=== PATIENT | female | born 1930 | race Caucasian/White ===

== ENCOUNTER → 2018-12-16 10:47 | Outpatient (CLI) | payer MEDICARE, BC | END | disposition home or self-care (01) | LOC: D.US 10:47 | PROVIDERS: ATTEND Family Medicine | DX: R22.41 Localized swelling, mass and lump, right lower limb (principal) ==

== ENCOUNTER 2020-12-07 20:03 | Inpatient (IN) | payer MEDICARE, BC ==
[~2020-12-07] VITALS: Ht 160 cm; Wt 63.5 kg
[2020-12-07 21:35] LABS: BASOPHILS 0.3 % (0-2); EOSINOPHILS 2.9 % (0-7); HEMATOCRIT 29.7 % (36.0-48.0); HEMOGLOBIN 9.3 g/dL (12-16); IMMATURE GRANULOCYTES 0.4 % (0-5); LYMPHOCYTE ABS# 1.86 10x3/uL (1.18-3.74); LYMPHOCYTES 16.3 % (15-50); MCH 26.7 pg (26.0-34.0); MCHC 31.3 g/dL (31.0-37.0); MCV 85.3 fL (80.0-100.0); MEAN PLATELET VOLUME 9.3 fL (7.4-10.4); MONOCYTES 5.2 % (2-11); NEUTROPHIL ABS# 8.56 10x3/uL (1.56-6.13); NEUTROPHILS 74.9 % (40-80); PLATELET COUNT 174 10x3/uL (130-400); RBC 3.48 10x6/uL (4.00-5.40); RDW 13.9 % (11.5-14.5); WBC 11.4 10x3/uL (4.8-10.8)
[2020-12-07 21:41] LABS: APTT 30.4 SECONDS (22.8-39.4); INR 1.25 (0.85-1.17); PROTIME 14.5 SECONDS (11.6-15.0)
[2020-12-07 21:42] LABS: CALC OSMOLALITY 294 mosm/kg (275-300); CALCIUM 10.3 mg/dL (8.5-10.1); CARBON DIOXIDE 26.9 mmol/L (21.0-32.0); CHLORIDE - SERUM 102 mmol/L (98-107); CREATININE - SERUM 3.7 mg/dL (0.6-1.3); GLUCOSE 109 mg/dL (74-106); POTASSIUM - SERUM 4.3 mmol/L (3.5-5.1); SODIUM 136 mmol/L (136-145); UREA NITROGEN 73 mg/dL (7-18); eGFR NON AFRICAN AMERICAN 12 mL/min (90-120)
[2020-12-07 21:56] LABS: ALBUMIN 2.5 g/dL (3.4-5.0); ALKALINE PHOSPHATASE 90 U/L (30-120); ALT (SGPT) 28 U/L (10-68); BILIRUBIN - TOTAL 0.41 mg/dL (0.2-1.3); LIPASE 282 U/L (73-393); MAGNESIUM - SERUM 2.6 mg/dL (1.8-2.4); PRO BNP 1569 pg/mL (0-450); PROTEIN - SERUM 6.4 g/dL (6.4-8.2); THYROID STIMULATING HORMONE 0.06 uIU/mL (0.36-3.74); TROPONIN-I < 0.017 ng/mL (0.000-0.060)
[2020-12-07] MEDS ORDERED: SYNTHROID150 MCG PO (22:33)
[2020-12-07] MEDS ORDERED: EFFEXOR XR37.5 MG PO (22:43)
[2020-12-07] MEDS ORDERED: DULCOLAX10 MG/SUPP RC (22:44)
[2020-12-07] MEDS ORDERED: MEGACE 20 MG TA20 MG (22:45)
[2020-12-07] MEDS ORDERED: NORVASC10 MG PO (22:45)
[2020-12-07] MEDS ORDERED: MAG-OX 400 MG400 MG (22:46)
[2020-12-07] MEDS ORDERED: ZINC10 MG (22:46)
[2020-12-07] MEDS ORDERED: NORMODYNE / TR100 MG PO (22:47)
[2020-12-07] MEDS ORDERED: CO Q-10100 MG (22:47)
[2020-12-07] MEDS ORDERED: LUTEIN20 MG PO (22:47)
[2020-12-07] MEDS ORDERED: NEPHRO-VITE RX1 TAB (22:48)
[2020-12-07] MEDS ORDERED: VITAMIN D-32000 UNIT (22:48)
[2020-12-07 23:03] VITALS: BP 148/79
--- NOTE | 2020-12-07 23:32 | NUR ---
RECEIVED FROM ER, BED IS LOW, SRX2, CALL LIGHT IN REACH, WILL CONTINUE PLAN OF CARE
[2020-12-08] VITALS (7 sets, daily range): BP systolic 94–165; BP diastolic 54–77; BMI 24.8
[2020-12-08 05:35] LABS: BASOPHILS 0.2 % (0-2); EOSINOPHILS 3.2 % (0-7); HEMATOCRIT 28.7 % (36.0-48.0); HEMOGLOBIN 8.9 g/dL (12-16); IMMATURE GRANULOCYTES 0.2 % (0-5); LYMPHOCYTE ABS# 1.99 10x3/uL (1.18-3.74); LYMPHOCYTES 16.3 % (15-50); MCH 26.2 pg (26.0-34.0); MCV 84.4 fL (80.0-100.0); MEAN PLATELET VOLUME 9.5 fL (7.4-10.4); MONOCYTES 5.7 % (2-11); NEUTROPHIL ABS# 9.06 10x3/uL (1.56-6.13); NEUTROPHILS 74.4 % (40-80); PLATELET COUNT 180 10x3/uL (130-400); WBC 12.2 10x3/uL (4.8-10.8)
--- NOTE | 2020-12-08 05:44 | NUR ---
ADMISSION ASSESSMENT AND REVIEW COMPLETED. HOME MEDS REVIEWED. PT RESTING IN BED. PLAN OF CARE INITIATED.
[2020-12-08 05:57] LABS: ALBUMIN 2.5 g/dL (3.4-5.0); ANION GAP 12.2 mmol/L (8-16); BILIRUBIN - TOTAL 0.46 mg/dL (0.2-1.3); CREATININE - SERUM 3.6 mg/dL (0.6-1.3); POTASSIUM - SERUM 4.2 mmol/L (3.5-5.1); PROTEIN - SERUM 5.9 g/dL (6.4-8.2); T4 THYROXIN - FREE 1.96 ng/dL (0.76-1.46)
[2020-12-08 06:02] LABS: MAGNESIUM - SERUM 2.7 mg/dL (1.8-2.4); PHOSPHOROUS 3.4 mg/dL (2.5-4.9)
--- NOTE | 2020-12-08 07:20 | NUR ---
RECIEVE REPORT. RESTING IN BED WITH EYES CLOSED. NO SIGNS OF DISTRESS. CONTINUE PLAN OF CARE AND SAFETY PRECAUTIONS.
--- NOTE | 2020-12-08 14:49 | NUR ---
ALERT AND ORIENTED X2. BLADDER SCAN SHOWS 979ml OF URINE. SCOTT INSERTED 16fr. BULB INFLATED 10ml. URINE CLOUDY WITH PINK SEDIMENT. UA COLLECTED AND TAKEN TO LAB. CONTINUE PLAN OF CARE AND SAFETY PRECAUTIONS.
[2020-12-08 15:04] LABS: BILIRUBIN NEGATIVE (NEGATIVE); KETONE NEGATIVE (NEGATIVE); NITRITE NEGATIVE (NEGATIVE); UROBILINOGEN NORMAL mg/dL (< 2)
[2020-12-08 15:05] LABS: WHITE CELLS - URINE >50 HPF (0-4)
[2020-12-08 15:06] LABS: BACTERIA MANY HPF (NONE SEEN); SQUAMOUS EPITHELIAL 0-5 HPF (0-4)
[2020-12-08 15:38] LABS: CREATININE - URINE 72.8 mg/dL (30-125)
[2020-12-08 15:48] LABS: PRO/CRE RATIO URINE 5.4 mg/g; PROTEIN - URINE 394.2 mg/dL (0.0-11.9)
--- NOTE | 2020-12-08 19:48 | NUR ---
RECEIVED REPORT, WILL ASSUME CARE OF PT, SLEEPING, NO DISTRESS NOTICED AT THIS TIME, BED IS LOW, SRX2, CALL LIGHT IN REACH, WILL CONTINUE PLAN OF CARE
--- NOTE | 2020-12-08 22:36 | NUR ---
I have reviewed this patient and I concur with the Shift Assessment completed by the Licensed Practical Nurse today this shift.
[2020-12-09 03:16] VITALS: BP 148/81
[2020-12-09 06:13] LABS: BASOPHILS 0.2 % (0-2); HEMATOCRIT 28.4 % (36.0-48.0); HEMOGLOBIN 8.8 g/dL (12-16); IMMATURE GRANULOCYTES 0.2 % (0-5); LYMPHOCYTES 20.2 % (15-50); MCH 26.2 pg (26.0-34.0); MCV 84.5 fL (80.0-100.0); MEAN PLATELET VOLUME 9.4 fL (7.4-10.4); MONOCYTES 8.3 % (2-11); NEUTROPHIL ABS# 6.55 10x3/uL (1.56-6.13); NEUTROPHILS 66.1 % (40-80); PLATELET COUNT 176 10x3/uL (130-400); RBC 3.36 10x6/uL (4.00-5.40); RDW 14.1 % (11.5-14.5); WBC 9.9 10x3/uL (4.8-10.8)
[2020-12-09 06:35] LABS: % SATURATION 17 % (15-55); IRON 33 ug/dl (35-150); TOTAL IRON BIND CAPACITY 189 ug/dl (260-445); UNSAT IRON BIND CAPACITY 156 ug/dl (150-375)
[2020-12-09 06:55] LABS: FERRITIN 343 ng/mL (3-244)
[2020-12-09 07:11] LABS: MAGNESIUM - SERUM 2.4 mg/dL (1.8-2.4); PHOSPHOROUS 3.7 mg/dL (2.5-4.9)
[2020-12-09 07:17] LABS: ALBUMIN 2.5 g/dL (3.4-5.0); ANION GAP 17.4 mmol/L (8-16); BILIRUBIN - TOTAL 0.43 mg/dL (0.2-1.3); CALCIUM 9.8 mg/dL (8.5-10.1); CARBON DIOXIDE 20.7 mmol/L (21.0-32.0); CREATININE - SERUM 3.5 mg/dL (0.6-1.3); POTASSIUM - SERUM 4.1 mmol/L (3.5-5.1); PROTEIN - SERUM 5.8 g/dL (6.4-8.2)
--- NOTE | 2020-12-09 07:20 | NUR ---
RECIEVE REPORT. RESTING IN BED WITH EYES CLOSED. SCOTT DRAINING BY GRAVITY, TUBING FREE FROM KINKS. STAT LOCK TO INNER RT THIGH. NO SIGNS OF DISTRESS. CONTINUE PLAN OF CARE AND SAFETY PRECAUTIONS.
[2020-12-09 08:00] VITALS: BP 155/82
[2020-12-09 08:01] LABS: ERYTHROCYTE SEDIMENTATION RATE 54 mm/hr (0-42)
--- NOTE | 2020-12-09 09:09 | NUR ---
AM MEDS GIVEN AT THIS TIME. PT REFUSED TO EAT BREAKFAST. FLUSHED SCOTT CATHETER WITH 100CC OF STERILE WATER. PT DENIES ANY NEEDS, CALL LIGHT IN REACH.
[2020-12-09 12:00] VITALS: BP 150/81
--- NOTE | 2020-12-09 13:12 | NUR ---
ALERT AND ORIENTED TO SELF AND PLACE. SON AT BEDSIDE. SON BROUGHT LIST OF BELONGINGS TO ROOM. LIST OF BELONGINGS SCANNED IN TO CHART AND WRITTEN COPY ON PAPER CHART. CONTINUE PLAN OF CARE AND SAFETY PRECAUTIONS.
[2020-12-09 15:00] VITALS: BP 151/80
[2020-12-09 20:00] VITALS: BP 129/60
--- NOTE | 2020-12-10 01:58 | NUR ---
RESTING WITH EYES CLOSED, RESPERTIONS EVEN, NO S/S DSITRESS NOTED.
[2020-12-10 04:00] VITALS: BP 141/67
--- NOTE | 2020-12-10 05:08 | NUR ---
I have reviewed this patient and I concur with the Shift Assessment completed by the Licensed Practical Nurse today this shift.
[2020-12-10 06:18] LABS: BASOPHILS 0.4 % (0-2); EOSINOPHILS 4.8 % (0-7); HEMATOCRIT 27.8 % (36.0-48.0); HEMOGLOBIN 8.9 g/dL (12-16); IMMATURE GRANULOCYTES 0.5 % (0-5); LYMPHOCYTES 22.1 % (15-50); MCH 26.9 pg (26.0-34.0); MEAN PLATELET VOLUME 9.8 fL (7.4-10.4); MONOCYTES 7.7 % (2-11); NEUTROPHIL ABS# 5.24 10x3/uL (1.56-6.13); NEUTROPHILS 64.5 % (40-80); PLATELET COUNT 190 10x3/uL (130-400); RBC 3.31 10x6/uL (4.00-5.40); WBC 8.1 10x3/uL (4.8-10.8)
[2020-12-10 06:55] LABS: ALBUMIN 2.3 g/dL (3.4-5.0); ANION GAP 14.7 mmol/L (8-16); BILIRUBIN - TOTAL 0.29 mg/dL (0.2-1.3); CALCIUM 9.5 mg/dL (8.5-10.1); CARBON DIOXIDE 23.4 mmol/L (21.0-32.0); CREATININE - SERUM 3.3 mg/dL (0.6-1.3); MAGNESIUM - SERUM 2.2 mg/dL (1.8-2.4); PHOSPHOROUS 3.7 mg/dL (2.5-4.9); POTASSIUM - SERUM 4.1 mmol/L (3.5-5.1); PROTEIN - SERUM 5.6 g/dL (6.4-8.2)
[2020-12-10 08:57] VITALS: BP 158/74
[2020-12-10 09:12] LABS: ANA REFLEX - DIRECT Negative (Negative)
[2020-12-10 12:38] VITALS: BP 117/65
[2020-12-10 12:52] VITALS: Ht 160 cm; Wt 63.5 kg
--- NOTE | 2020-12-10 14:51 | NUR ---
OT NOTE: PT REQUIRED MIN ASSIST FOR ROLLING SIDE TO SIDE; MAX ASSIST X 2 FOR EOB SITTING; LINENS CHANGED DUE TO DRAINAGE FROM L THIGH AREA. MAX X 2 FOR POSITIONING UP IN BED. SET UP FOR FEEDING AND SIMPLE GROOMING TASKS. NOELLE NELSON, OTR/L [phone]
[2020-12-10 15:42] VITALS: BP 148/76
--- NOTE | 2020-12-10 19:45 | NUR ---
ASSESSMENT COMPLETE, PT ALERT AND ORIENTED TO SELF. RESPERATIONS EVEN AND UNLABORED. IV TO RIGHT FOREARM WITH NS INFUSING AT 75 CC/HR. SITE CLEAN AND DRY. SCOTT DRAINING TO GRAVITY. PT DENIES PAIN OR NEEDS, BED LOW, CL IN REACH.
[2020-12-10 20:00] VITALS: BP 137/63
--- NOTE | 2020-12-11 03:15 | NUR ---
RESTING WITH EYES CLOSED, RESPERATIONS EVEN, NO S/S DISTRESS NOTED.
[2020-12-11 04:00] VITALS: BP 156/72
--- NOTE | 2020-12-11 04:24 | NUR ---
I have reviewed this patient and I concur with the Shift Assessment completed by the Licensed Practical Nurse today this shift.
--- NOTE | 2020-12-11 04:52 | NUR ---
IV TO LOWER RIGHT FOREARM LEAKING, IV CATH REMOVED, TIP INTACT. RESITED IV TO MID RIGHT FOREARM, 20 GUAGE, FIRST ATTEMPT. PT TOLERATED WELL.
[2020-12-11 07:27] LABS: BASOPHILS 0.4 % (0-2); EOSINOPHILS 5.5 % (0-7); HEMATOCRIT 28.7 % (36.0-48.0); IMMATURE GRANULOCYTES 0.3 % (0-5); LYMPHOCYTE ABS# 1.38 10x3/uL (1.18-3.74); LYMPHOCYTES 20.6 % (15-50); MCH 26.3 pg (26.0-34.0); MCHC 31.4 g/dL (31.0-37.0); MCV 83.9 fL (80.0-100.0); MEAN PLATELET VOLUME 9.1 fL (7.4-10.4); MONOCYTES 7.3 % (2-11); NEUTROPHIL ABS# 4.42 10x3/uL (1.56-6.13); NEUTROPHILS 65.9 % (40-80); PLATELET COUNT 216 10x3/uL (130-400); RBC 3.42 10x6/uL (4.00-5.40); RDW 14.1 % (11.5-14.5); WBC 6.7 10x3/uL (4.8-10.8)
[2020-12-11 07:41] LABS: ALBUMIN 2.4 g/dL (3.4-5.0); ANION GAP 13.4 mmol/L (8-16); BILIRUBIN - TOTAL 0.35 mg/dL (0.2-1.3); CALCIUM 9.9 mg/dL (8.5-10.1); CARBON DIOXIDE 23.4 mmol/L (21.0-32.0); CREATININE - SERUM 2.9 mg/dL (0.6-1.3); MAGNESIUM - SERUM 2.1 mg/dL (1.8-2.4); PHOSPHOROUS 3.8 mg/dL (2.5-4.9); POTASSIUM - SERUM 3.8 mmol/L (3.5-5.1); PROTEIN - SERUM 6.1 g/dL (6.4-8.2)
[2020-12-11 08:00] VITALS: BP 152/80
[2020-12-11 11:00] VITALS: BP 119/60
[2020-12-11 15:00] VITALS: BP 129/73
--- NOTE | 2020-12-11 15:29 | NUR ---
SOB WITH MOD ASSIT
--- NOTE | 2020-12-11 16:36 | MORECARE ---
CASE MANAGEMENT DISCHARGE SUMMARY PATIENT: TANIKA PERKINS UNIT: [id number] ADM DATE: 12/07/20 AGE: 89 : 31 SEX: F ROOM/BED: D.1133 AUTHOR: THONY,DOC PHYSICIAN: REFERRING PHYSICIAN: VIKASH PHILLIPS MD DATE OF SERVICE: 12/11/20 Case Management Discharge Planning Summary COMMENTS ENTERED DATE: 12/09/20 16:08 CT COMMENT TYPE: Discharge Planning REVIEWER: Tessie Mendez CM met with son in the room per request. He states they are private paying for a buttermaker continuous churn bed at [facility]. He states he is fine with her going back to [facility], they have paid for another week but his mother is asking for other options. I gave them a GEOVANY form for SNF. Son would like to look over the SNF choice list and call them and will call case management in the morning with preferences. Saúl talbot - [phone]. Address - [address] [place] [address]. DCP REVIEW SUMMARY ANTICIPATED D/C DATE: EXPECTED LOS : CASE STATUS: DCP Initiated INITIAL REVIEW: 12/11/2020 INITIAL REVIEWER: Tessie Mendez FINAL DISCHARGE DISPOSITION: : FINAL REVIEWER: FINAL REVIEW DATE: DCP Focus Questions & Answers QUESTION: ANSWER : PATIENT: TANIKA PERKINS ENCOUNTER: [id number] MEDICAL RECORD#: [id number] ADMISSION DATE: 12/07/2020 DISCHARGE DATE: ATTENDING MD: VIKASH FLOWER : AGE: 89 MARITAL STATUS: W DC PLAN ID: [id number] FACILITY: [facility] PRINTED ON: 12/11/20 16:35 CT All edits/amendments must be made on the electronic document DICTATION DATE: 12/11/20 163 [employer] SEWER: DM 12/11/20 163 RPT#: [id number] DC DATE: STATUS: ADM IN [facility] [address] [place] [address] END OF REPORT
--- NOTE | 2020-12-11 16:48 | MORECARE ---
CASE MANAGEMENT DISCHARGE SUMMARY PATIENT: TANIKA PERKINS UNIT: [id number] ADM DATE: 12/07/20 AGE: 89 : 31 SEX: F ROOM/BED: D.8927 AUTHOR: EDYTA BHANDARI PHYSICIAN: REFERRING PHYSICIAN: VIKASH PHILLIPS MD DATE OF SERVICE: 12/11/20 Case Management Discharge Planning Summary COMMENTS ENTERED DATE: 12/11/20 16:34 CT COMMENT TYPE: Discharge Planning REVIEWER: Tessie Mendez CM had met with patient and her son on Wednesday and gave them a GEOVANY for SNF. Patient states she has been at [facility] in a private paid assisted care bed and does not want to return. Patient's son states she is still needing a termite control servicer care bed or a skilled facility. I spoke with the patient today and she is unsure of the decision, but again states she does not want to return to [facility]. I called patient's son and he states he would like a referral to [facility]. I called and spoke with Socorro and referral faxed. CM will continue to follow and assist with discharge planning/needs. ENTERED DATE: 12/09/20 16:08 CT COMMENT TYPE: Discharge Planning REVIEWER: Tessie Mendez CM met with son in the room per request. He states they are private paying for a assisted bed at [facility]. He states he is fine with her going back to [facility], they have paid for another week but his mother is asking for other options. I gave them a GEOVANY form for SNF. Son would like to look over the SNF choice list and call them and will call case management in the morning with preferences. Saúl Perkins - son - [phone]. Address - [address] [place] [address]. NYP REVIEW SUMMARY ANTICIPATED D/C DATE: EXPECTED LOS : CASE STATUS: DCP Initiated INITIAL REVIEW: 12/11/2020 INITIAL REVIEWER: Tessie Mendez FINAL DISCHARGE DISPOSITION: : FINAL REVIEWER: FINAL REVIEW DATE: NYP Focus Questions & Answers QUESTION: ANSWER : PATIENT: TANIKA PERKINS ENCOUNTER: [id number] MEDICAL RECORD#: [id number] ADMISSION DATE: 12/07/2020 DISCHARGE DATE: ATTENDING MD: VIKASH FLOWER : AGE: 89 MARITAL STATUS: W DC PLAN ID: [id number] FACILITY: [facility] PRINTED ON: 12/11/20 16:48 CT All edits/amendments must be made on the electronic document DICTATION DATE: 12/11/201647 SALES REPRESENTATIVE MALT LIQUORS: SANDIP 12/11/201647 RPT#: [id number] DC DATE: STATUS: ADM IN [facility] [address] [place] [address] END OF REPORT
--- NOTE | 2020-12-11 17:20 | NUR ---
OT NOTE: PT COMPLETED SUPINE TO SIT WITH MIN A. PT COMPLETED EOB SITTING WITH CGA. PT COMPLETED HAIR GROOMING WITH MIN A. PT COMPLETED FACE HYGIENE WITH SETUP. PT REQUIRED MAX A FOR LB HYGIENE. [id number] THANK YOU,JOURDAN CHOW
[2020-12-11 21:00] VITALS: BP 146/71
[2020-12-12 05:03] VITALS: BP 152/78
[2020-12-12 05:54] LABS: BASOPHILS 0.4 % (0-2); EOSINOPHILS 6.2 % (0-7); HEMATOCRIT 27.5 % (36.0-48.0); HEMOGLOBIN 8.6 g/dL (12-16); IMMATURE GRANULOCYTES 0.3 % (0-5); LYMPHOCYTE ABS# 1.66 10x3/uL (1.18-3.74); LYMPHOCYTES 23.3 % (15-50); MCH 26.1 pg (26.0-34.0); MCHC 31.3 g/dL (31.0-37.0); MCV 83.3 fL (80.0-100.0); NEUTROPHIL ABS# 4.32 10x3/uL (1.56-6.13); NEUTROPHILS 60.8 % (40-80); PLATELET COUNT 220 10x3/uL (130-400); RDW 14.1 % (11.5-14.5); WBC 7.1 10x3/uL (4.8-10.8)
[2020-12-12 06:07] LABS: ALBUMIN 2.3 g/dL (3.4-5.0); ANION GAP 14.4 mmol/L (8-16); BILIRUBIN - TOTAL 0.28 mg/dL (0.2-1.3); CALCIUM 9.5 mg/dL (8.5-10.1); CARBON DIOXIDE 22.3 mmol/L (21.0-32.0); CREATININE - SERUM 2.7 mg/dL (0.6-1.3); MAGNESIUM - SERUM 1.9 mg/dL (1.8-2.4); PHOSPHOROUS 3.2 mg/dL (2.5-4.9); POTASSIUM - SERUM 3.7 mmol/L (3.5-5.1); PROTEIN - SERUM 5.6 g/dL (6.4-8.2)
[2020-12-12 09:36] VITALS: BP 161/68
--- NOTE | 2020-12-12 14:26 | NUR ---
PATIENT WAS A HIGH MOD TO TRANSFER TO THE CHAIR ABLE TO HOLD SOME OF HER WEIGHT UNABLE TO MOVE FEET WHEN MOVING STAYED UP OVER A HOUR
[2020-12-12 16:26] LABS: SARS-CoV-2 ANTIGEN NEGATIVE- SARS-COV-2 (NEGATIVE)
--- NOTE | 2020-12-12 17:13 | MORECARE ---
CASE MANAGEMENT DISCHARGE SUMMARY PATIENT: TANIKA PERKINS UNIT: [id number] ADM DATE: 12/07/20 AGE: 89 : 31 SEX: F ROOM/BED: D.2127 AUTHOR: THONY,DOC PHYSICIAN: REFERRING PHYSICIAN: VIKASH PHILLIPS MD DATE OF SERVICE: 12/12/20 Case Management Discharge Planning Summary COMMENTS ENTERED DATE: 12/12/20 17:05 CT COMMENT TYPE: Discharge Planning REVIEWER: [facility] and states patient will need a KELLI prior to admission to their facility and also a COVID screen. I have ordered the COVID. ENTERED DATE: 12/11/20 16:34 CT COMMENT TYPE: Discharge Planning REVIEWER: Tessie Mendez CM had met with patient and her son on Wednesday and gave them a GEOVANY for SNF. Patient states she has been at [facility] in a private paid correction care bed and does not want to return. Patient's son states she is still needing a truck terminal manager care bed or a skilled facility. I spoke with the patient today and she is unsure of the decision, but again states she does not want to return to [facility]. I called patient's son and he states he would like a referral to [facility] and [facility]. I called and spoke with Socorro and referral faxed. CM will continue to follow and assist with discharge planning/needs. ENTERED DATE: 12/09/20 16:08 CT COMMENT TYPE: Discharge Planning REVIEWER: Tessie Mendez CM met with son in the room per request. He states they are private paying for a truck terminal manager bed at [facility]. He states he is fine with her going back to [facility], they have paid for another week but his mother is asking for other options. I gave them a GEOVANY form for SNF. Son would like to look over the SNF choice list and call them and will call case management in the morning with preferences. Saúl Perkins - son - [phone]. Address - [address] [facility] in [place]. DCP REVIEW SUMMARY ANTICIPATED D/C DATE: EXPECTED LOS : CASE STATUS: DCP Initiated INITIAL REVIEW: 12/11/2020 INITIAL REVIEWER: Tessie Mendez FINAL DISCHARGE DISPOSITION: : FINAL REVIEWER: FINAL REVIEW DATE: DCP Focus Questions & Answers QUESTION: ANSWER : PATIENT: TANIKA PERKINS ENCOUNTER: [id number] MEDICAL RECORD#: [id number] ADMISSION DATE: 12/07/2020 DISCHARGE DATE: ATTENDING MD: VIKASH FLOWER : AGE: 89 MARITAL STATUS: W DC PLAN ID: [id number] FACILITY: [facility] PRINTED ON: 12/12/20 17:13 CT All edits/amendments must be made on the electronic document DICTATION DATE: 12/12/201712 TAFE REGISTRAR: SANDIP 12/12/201712 RPT#: [id number] DC DATE: STATUS: ADM IN [facility] [address] [place] [address] END OF REPORT
[2020-12-12 17:35] VITALS: BP 134/67
[2020-12-12 20:01] VITALS: BP 142/64
--- NOTE | 2020-12-13 04:12 | NUR ---
PT IS RESTING QUIETLY. SHE WAKES UP WHEN I MAKE ROUNDS ON HER. SHE HAS NO C/O AT THIS TIME
[2020-12-13 04:52] LABS: BASOPHILS 0.3 % (0-2); HEMATOCRIT 27.2 % (36.0-48.0); HEMOGLOBIN 8.7 g/dL (12-16); IMMATURE GRANULOCYTES 0.4 % (0-5); LYMPHOCYTE ABS# 1.72 10x3/uL (1.18-3.74); MCH 26.6 pg (26.0-34.0); MCV 83.2 fL (80.0-100.0); MEAN PLATELET VOLUME 8.9 fL (7.4-10.4); MONOCYTES 7.1 % (2-11); NEUTROPHIL ABS# 4.47 10x3/uL (1.56-6.13); NEUTROPHILS 62.2 % (40-80); PLATELET COUNT 218 10x3/uL (130-400); RBC 3.27 10x6/uL (4.00-5.40); RDW 14.3 % (11.5-14.5); WBC 7.2 10x3/uL (4.8-10.8)
[2020-12-13 05:19] LABS: ALBUMIN 2.4 g/dL (3.4-5.0); ANION GAP 15.7 mmol/L (8-16); BILIRUBIN - TOTAL 0.28 mg/dL (0.2-1.3); CALCIUM 9.9 mg/dL (8.5-10.1); CARBON DIOXIDE 21.7 mmol/L (21.0-32.0); CREATININE - SERUM 2.6 mg/dL (0.6-1.3); POTASSIUM - SERUM 3.4 mmol/L (3.5-5.1); PROTEIN - SERUM 6.1 g/dL (6.4-8.2)
--- NOTE | 2020-12-13 07:15 | NUR ---
PT LYING IN BED WITH EYES CLOSED. RESP EVEN AND UNLABORED. RAISES TO VERBAL STIMULI. FC CATHETER IN PLACE DRAINING CLEAR FAIZAN URINE. DENIES NEEDS AT THIS TIME CLIR. BED IN LOWEST POSITION. SIDE RAILS X2
[2020-12-13 08:14] VITALS: BP 149/81
[2020-12-13 11:49] VITALS: BP 134/64
--- NOTE | 2020-12-13 13:12 | NUR ---
Nutrition Follow-up: Poor PO intake; 0% this AM. Receiving Megace. Awaiting placement. Diet: Renal, Nepro TID No new wt; last wt: 140# (12/10) Labs noted: K+ 3.4, BUN 40, Cre 2.6, GFR 18, Alb 2.4, PO4 3.2 (12/12) Meds noted: Florajen, Nephrovite, Protonix, Megace, electrolyte protocol -Rec diet liberalization 2/2 advanced age, poor PO intake. K+ low requiring supplementation; PO4 wnl. -If poor PO intake continues, may consider nutrition support if medically feasible and/or desired. -Need new wt. -RD follow-up: 12/16
--- NOTE | 2020-12-13 13:37 | NUR ---
I have reviewed this patient and I concur with the Shift Assessment completed by the Licensed Practical Nurse today this shift.
--- NOTE | 2020-12-13 14:42 | NUR ---
PATIENT WAS MOD ASST TO GET UP TO BEDSIDE. PATIENT ONLY TOLERATED LIMITED AMOUNT OF SITTING ENDURANCE BEFORE WANTING TO LAY BACK DOWN. PATIENT FATIGUED QUICKLY.
--- NOTE | 2020-12-13 14:58 | NUR ---
OT NOTE: PT REQUIRED MOD A FOR SUPINE TO SIT. PT COMPLETED STATIC SITTING AT EOB WITH CGA. PT COMPLETED LB HYGIENE WITH MAX A. PT REQUIRED MOD-MAX A FOR SIDE ROLLING. [phone] THANK YOU,JOURDAN CHOW
[2020-12-13 15:51] VITALS: BP 142/77
[2020-12-13 20:54] VITALS: BP 143/72
[2020-12-14 01:56] VITALS: BP 146/77
[2020-12-14 06:09] LABS: BASOPHILS 0.3 % (0-2); EOSINOPHILS 5.6 % (0-7); HEMATOCRIT 28.7 % (36.0-48.0); IMMATURE GRANULOCYTES 0.5 % (0-5); LYMPHOCYTE ABS# 1.79 10x3/uL (1.18-3.74); LYMPHOCYTES 23.7 % (15-50); MCH 26.1 pg (26.0-34.0); MCHC 31.4 g/dL (31.0-37.0); MCV 83.2 fL (80.0-100.0); MEAN PLATELET VOLUME 8.8 fL (7.4-10.4); MONOCYTES 8.2 % (2-11); NEUTROPHIL ABS# 4.67 10x3/uL (1.56-6.13); NEUTROPHILS 61.7 % (40-80); PLATELET COUNT 212 10x3/uL (130-400); RBC 3.45 10x6/uL (4.00-5.40); RDW 14.6 % (11.5-14.5); WBC 7.6 10x3/uL (4.8-10.8)
[2020-12-14 06:20] LABS: ALBUMIN 2.5 g/dL (3.4-5.0); ANION GAP 15.7 mmol/L (8-16); BILIRUBIN - TOTAL 0.28 mg/dL (0.2-1.3); CALCIUM 9.7 mg/dL (8.5-10.1); CARBON DIOXIDE 22.2 mmol/L (21.0-32.0); CREATININE - SERUM 2.5 mg/dL (0.6-1.3); POTASSIUM - SERUM 3.9 mmol/L (3.5-5.1); PROTEIN - SERUM 6.2 g/dL (6.4-8.2)
[2020-12-14 06:43] VITALS: BP 161/75
[2020-12-14 09:00] VITALS: BP 152/85
--- NOTE | 2020-12-14 10:30 | NUR ---
COMPLETE LINEN CHANGE AT THIS TIME. PT HAD SMALL BM. DENIES ANY NEEDS AT THIS TIME. CALLL LIGHT IN REACH, NAD NOTED, WILL CONTINUE ZITA OF CARE.
[2020-12-14 12:35] VITALS: BP 124/67
--- NOTE | 2020-12-14 15:57 | NUR ---
HELPED PT TO BEDSIDE COMMODE AND BACK TO BED, PT HAD M SIDE BM. MAX ASSIST. ALL NEEDS MET, CALL LIGHT IN REACH.
[2020-12-14 16:58] VITALS: BP 115/64
--- NOTE | 2020-12-14 19:30 | NUR ---
RECEIVED REPORT, WILL ASSUME CARE OF PT, DENIES ANY NEEDS AT THIS TIME, BED IS LOW, SRX2, CALL LIGHT IN REACH, WILL CONTINUE PLAN OF CARE
[2020-12-14 21:38] VITALS: BP 156/77
--- NOTE | 2020-12-15 03:09 | NUR ---
I have reviewed this patient and I concur with the Shift Assessment completed by the Licensed Practical Nurse today this shift.
[2020-12-15 03:43] VITALS: BP 134/80
[2020-12-15 04:56] LABS: BASOPHILS 0.4 % (0-2); EOSINOPHILS 4.4 % (0-7); HEMOGLOBIN 8.8 g/dL (12-16); IMMATURE GRANULOCYTES 0.8 % (0-5); LYMPHOCYTE ABS# 1.61 10x3/uL (1.18-3.74); LYMPHOCYTES 20.4 % (15-50); MCH 26.1 pg (26.0-34.0); MCHC 31.4 g/dL (31.0-37.0); MCV 83.1 fL (80.0-100.0); MONOCYTES 7.7 % (2-11); NEUTROPHIL ABS# 5.25 10x3/uL (1.56-6.13); NEUTROPHILS 66.3 % (40-80); PLATELET COUNT 234 10x3/uL (130-400); RBC 3.37 10x6/uL (4.00-5.40); RDW 14.6 % (11.5-14.5); WBC 7.9 10x3/uL (4.8-10.8)
[2020-12-15 05:21] LABS: ALBUMIN 2.4 g/dL (3.4-5.0); ANION GAP 17.1 mmol/L (8-16); BILIRUBIN - TOTAL 0.26 mg/dL (0.2-1.3); CALCIUM 9.6 mg/dL (8.5-10.1); CARBON DIOXIDE 20.4 mmol/L (21.0-32.0); CREATININE - SERUM 2.3 mg/dL (0.6-1.3); POTASSIUM - SERUM 3.5 mmol/L (3.5-5.1); PROTEIN - SERUM 5.9 g/dL (6.4-8.2)
[2020-12-15 09:00] VITALS: BP 157/81
[2020-12-15 09:45] VITALS: BP 157/81
[2020-12-15 13:06] VITALS: BP 151/72
[2020-12-15 17:09] VITALS: BP 153/85
--- NOTE | 2020-12-15 19:46 | NUR ---
RECEIVED REPORT, WILL ASSUME CARE OF PT, SLEEPING, NO DISTRESS NOTICED AT THIS TIME, BED IS LOW, SRX3, CALL LIGHT IN REACH, WILL CONTINUE PLAN OF CARE
[2020-12-15 20:07] VITALS: BP 150/74
[2020-12-16 04:19] VITALS: BP 151/80
[2020-12-16 06:49] LABS: BASOPHILS 0.4 % (0-2); EOSINOPHILS 5.1 % (0-7); HEMATOCRIT 26.9 % (36.0-48.0); HEMOGLOBIN 8.6 g/dL (12-16); IMMATURE GRANULOCYTES 0.5 % (0-5); LYMPHOCYTE ABS# 1.94 10x3/uL (1.18-3.74); MCH 26.6 pg (26.0-34.0); MCV 83.3 fL (80.0-100.0); MEAN PLATELET VOLUME 8.8 fL (7.4-10.4); MONOCYTES 8.5 % (2-11); NEUTROPHIL ABS# 5.28 10x3/uL (1.56-6.13); NEUTROPHILS 62.5 % (40-80); PLATELET COUNT 224 10x3/uL (130-400); RBC 3.23 10x6/uL (4.00-5.40); RDW 14.7 % (11.5-14.5); WBC 8.4 10x3/uL (4.8-10.8)
[2020-12-16 06:55] LABS: ALBUMIN 2.4 g/dL (3.4-5.0); ANION GAP 16.6 mmol/L (8-16); BILIRUBIN - TOTAL 0.34 mg/dL (0.2-1.3); CALCIUM 9.4 mg/dL (8.5-10.1); CARBON DIOXIDE 19.2 mmol/L (21.0-32.0); CREATININE - SERUM 2.1 mg/dL (0.6-1.3); POTASSIUM - SERUM 3.8 mmol/L (3.5-5.1); PROTEIN - SERUM 5.8 g/dL (6.4-8.2)
[2020-12-16 08:29] VITALS: BP 164/71
[2020-12-16 12:41] VITALS: BP 159/67
--- NOTE | 2020-12-16 12:46 | NUR ---
OT NOTE: PT COMPLETED SUPINE TO SIT WITH MIN A. PT COMPLETED EOB SITTING WITH CGA. PT COMPLETED BUE AROM EXS TOLERATED. PT COMPLETED FACE AND HAIR HYGIENE WITH SETUP. [phone] THANK YOU,JOURDAN CHOW
--- NOTE | 2020-12-16 13:29 | NUR ---
MOD TO SOB PATIENT REFUSED TO GO TO THE CHAIR DID SOME SOB EX WITH OT
--- NOTE | 2020-12-16 14:00 | NUR ---
Nutrition Reassessment/Follow-up: Pt confused. Nursing reports poor PO intake; drinking small amount of Nepro. Receiving Megace. Awaiting placement. Diet: Renal, Nepro TID PO intake: 4% avg x 6 meals (12/14-12/15) No new wt; last wt: 140# (12/10) Labs noted: K+ 3.8, BUN 25, Cre 2.1, GFR 23, Alb 2.4 Meds noted: Megace, Florajen, Nephrovite, Protonix, NS @ 75, electrolyte protocol -Nutrition needs unchanged since initial assessment; no new wt available. -Rec diet liberalization 2/2 poor PO intake & advanced age. -Encourage PO intake and honor food preferences. -Need new wt. -RD will follow up within 3 days.
[2020-12-16] MEDS ORDERED: LEVOTHYROXINE125 MCG PO (16:11)
--- NOTE | 2020-12-16 17:31 | NUR ---
REPORT CALLED TO DRU AT [facility].
[2020-12-16 17:35] VITALS: BP 147/73
--- NOTE | 2020-12-16 18:11 | NUR ---
PROVIDED VERBAL AND WRITTEN DISCHARGE TO PT'S SON WHO VERBALIZED UNDERSTANDING, REGARDING TEACHING. D/C LT HAND IV WITH CATHETER TIP INTACT. CALLED [facility] AND THEY WILL BE HERE TO PICK PT UP IN ABOUT 30MIN.
--- NOTE | 2020-12-16 18:56 | NUR ---
PT LEFT UNIT VIA STRETCHER, ACCOMPANIED BY [facility] STAFF. SON TOOK ALL BELONGINGS WITH HIM.
--- NOTE | 2020-12-16 19:34 | MORECARE ---
CASE MANAGEMENT DISCHARGE SUMMARY PATIENT: TANIKA PERKINS UNIT: [id number] ADM DATE: 12/07/20 AGE: 89 : 31 SEX: F ROOM/BED: D.2127 AUTHOR: THONY,DOC PHYSICIAN: REFERRING PHYSICIAN: VIKASH PHILLIPS MD DATE OF SERVICE: 12/16/20 Case Management Discharge Planning Summary COMMENTS ENTERED DATE: 12/12/20 17:05 CT COMMENT TYPE: Discharge Planning REVIEWER: [facility] and states patient will need a KELLI prior to admission to their facility and also a COVID screen. I have ordered the COVID. ENTERED DATE: 12/11/20 16:34 CT COMMENT TYPE: Discharge Planning REVIEWER: Tessie Mendez CM had met with patient and her son on Wednesday and gave them a GEOVANY for SNF. Patient states she has been at [facility] in a private paid [facility] care bed and does not want to return. Patient's son states she is still needing a terminal makeup operator care bed or a skilled facility. I spoke with the patient today and she is unsure of the decision, but again states she does not want to return to [facility]. I called patient's son and he states he would like a referral to [facility] and [facility]. I called and spoke with Socorro and referral faxed. CM will continue to follow and assist with discharge planning/needs. ENTERED DATE: 12/09/20 16:08 CT COMMENT TYPE: Discharge Planning REVIEWER: Tessie Mendez CM met with son in the room per request. He states they are private paying for a terminal makeup operator bed at [facility]. He states he is fine with her going back to [facility], they have paid for another week but his mother is asking for other options. I gave them a GEOVANY form for SNF. Son would like to look over the SNF choice list and call them and will call case management in the morning with preferences. Saúl Perkins - son - [phone]. Address - [address] [facility] in [place]. DCP REVIEW SUMMARY ANTICIPATED D/C DATE: EXPECTED LOS : CASE STATUS: DCP Initiated INITIAL REVIEW: 12/11/2020 INITIAL REVIEWER: Tessie Mendez FINAL DISCHARGE DISPOSITION: : FINAL REVIEWER: FINAL REVIEW DATE: DCP Focus Questions & Answers QUESTION: ANSWER : PATIENT: TANIKA PERKINS ENCOUNTER: [id number] MEDICAL RECORD#: [id number] ADMISSION DATE: 12/07/2020 DISCHARGE DATE: 12/16/2020 ATTENDING MD: VIKASH FLOWER : AGE: 89 MARITAL STATUS: W DC PLAN ID: [id number] FACILITY: [facility] PRINTED ON: 12/16/20 19:34 CT All edits/amendments must be made on the electronic document DICTATION DATE: 12/16/201933 CAMERA ASSEMBLER: SANDIP 12/16/201933 RPT#: [id number] DC DATE:12/16/20 STATUS: DIS IN [facility] [address] [place] [address] END OF REPORT
--- NOTE | 2020-12-17 17:14 | MORECARE ---
CASE MANAGEMENT DISCHARGE SUMMARY PATIENT: TANIKA PERKINS UNIT: [id number] ADM DATE: 12/07/20 AGE: 89 : 31 SEX: F ROOM/BED: D.2127 AUTHOR: THONY,DOC PHYSICIAN: REFERRING PHYSICIAN: VIKASH PHILLIPS MD DATE OF SERVICE: 12/17/20 Case Management Discharge Planning Summary COMMENTS ENTERED DATE: 12/12/20 17:05 CT COMMENT TYPE: Discharge Planning REVIEWER: [facility] and states patient will need a KELLI prior to admission to their facility and also a COVID screen. I have ordered the COVID. ENTERED DATE: 12/11/20 16:34 CT COMMENT TYPE: Discharge Planning REVIEWER: Tessie Mendez CM had met with patient and her son on Wednesday and gave them a GEOVANY for SNF. Patient states she has been at [facility] in a private paid half-way care bed and does not want to return. Patient's son states she is still needing a terminal clerk care bed or a skilled facility. I spoke with the patient today and she is unsure of the decision, but again states she does not want to return to [facility]. I called patient's son and he states he would like a referral to [facility] and [facility]. I called and spoke with Socorro and referral faxed. CM will continue to follow and assist with discharge planning/needs. ENTERED DATE: 12/09/20 16:08 CT COMMENT TYPE: Discharge Planning REVIEWER: Tessie Mendez CM met with son in the room per request. He states they are private paying for a terminal clerk bed at [facility]. He states he is fine with her going back to [facility], they have paid for another week but his mother is asking for other options. I gave them a GEOVANY form for SNF. Son would like to look over the SNF choice list and call them and will call case management in the morning with preferences. Saúl Perkins - son - [phone]. Address - [address] [facility] in [place]. DCP REVIEW SUMMARY ANTICIPATED D/C DATE: EXPECTED LOS : CASE STATUS: DCP Complete INITIAL REVIEW: 12/11/2020 INITIAL REVIEWER: Tessie Mendez FINAL DISCHARGE DISPOSITION: : FINAL REVIEWER: FINAL REVIEW DATE: DCP Focus Questions & Answers QUESTION: ANSWER : PATIENT: TANIKA PERKINS ENCOUNTER: [id number] MEDICAL RECORD#: [id number] ADMISSION DATE: 12/07/2020 DISCHARGE DATE: 12/16/2020 ATTENDING MD: VIKASH FLOWER : AGE: 89 MARITAL STATUS: W DC PLAN ID: [id number] FACILITY: [facility] PRINTED ON: 12/17/20 17:14 CT All edits/amendments must be made on the electronic document DICTATION DATE: 12/17/201713 CLERICAL SUPPORT: SANDIP 12/17/201713 RPT#: [id number] DC DATE:12/16/20 STATUS: DIS IN [facility] [address] [place] [address] END OF REPORT
--- NOTE | 2020-12-19 08:19 | MORECARE ---
CASE MANAGEMENT DISCHARGE SUMMARY PATIENT: TANIKA PERKINS UNIT: [id number] ADM DATE: 12/07/20 AGE: 89 : 31 SEX: F ROOM/BED: D.2127 AUTHOR: THONY,DOC PHYSICIAN: REFERRING PHYSICIAN: VIKASH PHILLIPS MD DATE OF SERVICE: 12/19/20 Case Management Discharge Planning Summary COMMENTS ENTERED DATE: 12/12/20 17:05 CT COMMENT TYPE: Discharge Planning REVIEWER: [facility] and states patient will need a KELLI prior to admission to their facility and also a COVID screen. I have ordered the COVID. ENTERED DATE: 12/11/20 16:34 CT COMMENT TYPE: Discharge Planning REVIEWER: Tessie Mendez CM had met with patient and her son on Wednesday and gave them a GEOVANY for SNF. Patient states she has been at [facility] in a private paid alf care bed and does not want to return. Patient's son states she is still needing a intermediate school teacher care bed or a skilled facility. I spoke with the patient today and she is unsure of the decision, but again states she does not want to return to [facility]. I called patient's son and he states he would like a referral to [facility]. I called and spoke with Socorro and referral faxed. CM will continue to follow and assist with discharge planning/needs. ENTERED DATE: 12/09/20 16:08 CT COMMENT TYPE: Discharge Planning REVIEWER: Tessie Mendez CM met with son in the room per request. He states they are private paying for a intermediate school teacher bed at [facility]. He states he is fine with her going back to [facility], they have paid for another week but his mother is asking for other options. I gave them a GEOVANY form for SNF. Son would like to look over the SNF choice list and call them and will call case management in the morning with preferences. Saúl Perkins - son - [phone]. Address - [address] [facility] in [place]. DCP REVIEW SUMMARY ANTICIPATED D/C DATE: EXPECTED LOS : CASE STATUS: DCP Complete INITIAL REVIEW: 12/11/2020 INITIAL REVIEWER: Tessie Mendez FINAL DISCHARGE DISPOSITION: : FINAL REVIEWER: FINAL REVIEW DATE: DCP Focus Questions & Answers QUESTION: ANSWER : PATIENT: TANIKA PERKINS ENCOUNTER: [id number] MEDICAL RECORD#: [id number] ADMISSION DATE: 12/07/2020 DISCHARGE DATE: 12/16/2020 ATTENDING MD: VIKASH FLOWER : AGE: 89 MARITAL STATUS: W DC PLAN ID: [id number] FACILITY: [facility] PRINTED ON: 12/19/20 8:19 CT All edits/amendments must be made on the electronic document DICTATION DATE: 12/19/20818 AUTOMOTIVE VEHICLE INSPECTOR: SANDIP 12/19/20818 RPT#: [id number] DC DATE:12/16/20 STATUS: DIS IN [facility] [address] [place] [address] END OF REPORT
== END 2020-12-16 19:24 | DRG 683 ==
LOC: D.ER 20:03 → D.M2 22:36
PROVIDERS: Emergency Medicine; Family Medicine; Internal Medicine Nephrology; ADMIT Emergency Medicine; ATTEND Emergency Medicine
DX: N17.9 Acute kidney failure, unspecified (principal); N39.0 Urinary tract infection, site not specified; I11.0 Hypertensive heart disease with heart failure; I50.9 Heart failure, unspecified; E03.9 Hypothyroidism, unspecified; F03.90 Unspecified dementia, unspecified severity, without behavioral disturbance, psychotic disturbance, mood disturbance, and anxiety